=== PATIENT | male | born 1965 | race Caucasian/White ===

== ENCOUNTER 2018-12-08 12:32 | Outpatient (RCR) | payer OTHER ==
[~2018-12-08 12:32] MED LIST: NO HOME MEDICATIONS; NORCO 325 MG-7.1 TAB PO
== END 2019-03-08 | disposition home or self-care (01) ==
LOC: WSOH
DX: S40.811A Abrasion of right upper arm, initial encounter (principal); W45.0XXA Nail entering through skin, initial encounter; Y92.89 Other specified places as the place of occurrence of the external cause; Y99.0 Civilian activity done for income or pay; Z23 Encounter for immunization; F17.210 Nicotine dependence, cigarettes, uncomplicated

== ENCOUNTER 2022-11-20 05:17 | Inpatient (IN) | payer OTHER ==
[~2022-11-20] VITALS: Ht 177.8 cm; Wt 131.2 kg
[2022-11-25] VITALS (8 sets, daily range): BP systolic 122–138; BP diastolic 78–89; PULSE 81–114; TEMP 97.8–98.6
[2022-11-25 10:41] LABS: CALCIUM 9.3 mg/dL (8.4-10.2); CREATININE, serum 0.83 mg/dL (0.72-1.25); MAGNESIUM 2.1 mg/dL (1.6-2.6); POTASSIUM 4.5 mmol/L (3.5-4.5)
[2022-11-25] MEDS ORDERED: CARDIZEM CD360 MG PO (11:13)
[2022-11-25] MEDS ORDERED: XARELTO20 MG PO (11:14)
[2022-11-25] MEDS ORDERED: LIPITOR 40MG TA40 MG PO (11:15)
[2022-11-25] MEDS ORDERED: ASPIRIN 81M81 MG/TA2 PO (11:15)
[2022-11-25] MEDS ORDERED: TYLENOL 500MG500 MG PO (11:15)
[2022-11-25] MEDS ORDERED: VIAGRA 25MG TAB25 MG PO (11:16)
--- NOTE | 2022-11-25 11:31 | NUR ---
PATIENT ADMITTED TO ROOM 357 FOR BIANCA INITATION AT APPROX 0920. KATERYNA LUZ WITH CARDIOLOGY NOTIFIED AT 0930. INTAKE, ASSESSMENT, AND MED REC COMPLETED. ORDERS FAXED TO PHARMACY. PATIENT ORIENTED TO ROOM AND USE OF CALL LIGHT. DENIES NEEDS.
--- NOTE | 2022-11-25 12:09 | NUR ---
INITIAL QTC 513. KATERYNA LUZ UPDATED, CLARIFICATION REQUESTED WHETHER OR NOT TO GIVE FIRST TIKOSYN DOSE. AWAITING RETURN CALL.
--- NOTE | 2022-11-25 13:09 | NUR ---
PER KATERYNA LUZ OKAY FOR PATIENT TO RECEIVE TIKOSYN WITH QTC OF 513. MEDICATION GIVEN PER ORDER. EKG ORDER PLACED FOR TWO HOURS POST ADMINISTRATION
--- NOTE | 2022-11-25 21:05 | NUR ---
Pt sitting up in recliner upon this nurse's entry to room. A&Ox4. PM scheduled medications admin PO w/o difficulty. Shift assessment performed. Respirations even and unlabored on room air. Heart rhythm irregular w/ regular rate. Abd rounded and soft. Crusting dryness to bilateral heels. Scaling/flakiness noted to BLE and some edema w/o pitting. Pt denies any chest pain, palpitations, SOA, dyspnea, lightheadedness, dizziness, or nausea/vomitting. No needs or concerns voiced. Call light in reach.
[2022-11-26] VITALS (18 sets, daily range): BP systolic 99–141; BP diastolic 64–97; PULSE 53–107; TEMP 97.9–98.5
--- NOTE | 2022-11-26 05:39 | NUR ---
Pt has been monitored throughout night by this nurse. No adverse events overnight. Pt has been resting soundly w/ eyes closed. Respirations are even and unlabored on room air. Telemetry in place monitoring cardiac activity. Irregular rhythm (AFlutter w/ RVR) w/ rate of 90-100bpm. No signs of distress noted. Call light in reach.
--- NOTE | 2022-11-26 10:41 | NUR ---
SHIFT ASSESSMENT COMPLETED AND MORNING MEDICATIONS GIVEN PER ORDER. KATERYNA LUZ UPDATED REGARDING ELEVATED QTC THIS MORNING, PER ANNITA CURRAN TO GIVE TIKOSYN THIS MORNING. PATIENT IS ALERT AND ORIENTED. C/O PAIN 10/06 BUT STATES HE DOES NOT WANT MEDICATION AT THIS TIME. PLAN IS FOR PATIENT TO HAVE SHENG/CARDIOVERSION THIS AFTERNOON. DENIES NEEDS. CALL LIGHT WITHIN REACH.
--- NOTE | 2022-11-26 10:48 | NUR ---
SW met with pt for intake. Pt reports living in alone however brother is going to prepare a camper for him to live in [facility] in his yard. Pt reports PCP as Valeria and uses [facility] as pharmacy. Pt reports he was out of meds due to the prescibing dr not doing follow up and reports he called in for prescription and didn't get a call back. Pt reports the med is supposed to be sent by mail by specialty pharmacy. Pt reports [facility] is [facility] and his number is [phone]. Pt reports having DPOA. Pt denies any needs at this time. D/C plan home with brother
--- NOTE | 2022-11-26 13:54 | NUR ---
PATIENT GOING DOWN TO ASSISTANT SPEECH LANGUAGE PATHOLOGIST.
--- NOTE | 2022-11-26 15:24 | NUR ---
PATIENT RETURNED FROM [facility]OCK [facility]PA[facility]ER AT APPROX 1505. PATIENT IS ALERT AND ORIENTED. DENIES PAIN. TOLERATING PO LIQUIDS WELL. PATIENT IN AND OUT OF JUNCTIONAL RHYTHM, HR 50S-70S. DR. DEAL AWARE. DENIES NEEDS. CALL LIGHT WITHIN REACH.
--- NOTE | 2022-11-26 16:28 | NUR ---
NOTIFIED BY TELE THAT PATIENT NOTED TO BE TACHYCARDIC IN THE 140S, IMMEDIATELY FOLLOWED BY BEING DIEGO IN THE 30S. UPON ASSESSMENT, PATIENT NOTED TO BE IN SINUS RHYTHM WITH 1-2 MINUTE PERIODS OF SINUS TACHYCARDIA, IMMEDIATELY FOLLOWED BY 10-30 SECOND PERIODS OF SINUS DIEGO. PATIENT ASYMPTOMATIC, VS STABLE. KATERYNA LUZ UPDATED WHO STATES TO CONTINUE TO MONITOR PATIENT.
--- NOTE | 2022-11-26 17:30 | NUR ---
THIS RN SPOKE WITH DR. DEAL TO UPDATE HIM REGARDING PATIENT'S TACHY/DIEGO EPISODES. PER DR. DEAL, REDUCE TIKOSYN TO 250MCG BID AND CONTINUE TO MONITOR PATIENT. ORDERS ENTERED. PATIENT CONTINUES TO BE ASYMPTOMATIC.
--- NOTE | 2022-11-26 21:15 | NUR ---
Pt sitting up in bed watching tv upon this nurse's entry to room. A&Ox4. PM scheduled medications admin PO w/o difficulty. Shift assessment performed. Respirations are even and unlabored on room air. Heart sounds RRR. Telemetry in place monitoring pt cardiac activity. No redness or burning @ cardioversion pad sites on chest & back. Pt denies any SOA, dyspnea, chest pain, palpitations, lightheadedness, or dizziness. No needs or concerns voiced. Call light in reach.
[2022-11-27] VITALS (12 sets, daily range): BP systolic 113–140; BP diastolic 69–83; PULSE 64–84; TEMP 97.8–99
--- NOTE | 2022-11-27 00:36 | NUR ---
Pt lying in bed supine w/ eyes closed resting in dark room. Respirations are even and unlabored on room air. No signs of distress observed. Tele in place monitoring cardiac activity. SR 78bpm. Call light in reach.
--- NOTE | 2022-11-27 05:18 | NUR ---
Pt lying supine w/ HOB elevated approx 40 degrees resting w/ eyes closed. Respirations are even and unlabored on room air. No signs of distress. Tele in place SR 78bpm. HR has been fluctuating from 60-95bpm gradually over a 2-3 minute period and repeats. Call light in reach. Will continue to monitor.
--- NOTE | 2022-11-27 06:18 | NUR ---
Pt lying in bed w/ eyes closed and HOB elevated @ approx 30 degrees. Pt has been monitored throughout night by this nurse. No adverse events overnight. Pt did have one episode @ approx 0210 per radiologic technology program director of HR in 140's then returning to 70's. Tele in place and is NSR 82bpm. Respirations are even and unlabored on room air. No signs of distress noted. Call light in reach.
--- NOTE | 2022-11-27 22:30 | NUR ---
Patient assessed around 2054. Alert and oriented, and able to make needs known. Voiced concerns about having an appointment tomorrow at 1100. Per Torres's note, cardiology is aware of appointment and are planning on discharging patient so he can go to his appointment. Dr. Argueta confirmed this with this nurse while rounding. Patient updated. Given Acetaminophen for pain to right shoulder and RUE as requested. Voices no further questions, needs, or concerns at this time. In recliner with call light within reach.
[2022-11-28 00:40] VITALS: BP_SYST 118
[2022-11-28 03:15] VITALS: BP 110/71; PULSE 80; TEMP 98.2
[2022-11-28 03:31] VITALS: BP_SYST 110
--- NOTE | 2022-11-28 06:13 | NUR ---
Patient remains in normal sinus rhythm on telemetry. Voices no questions, needs, or concerns at this time. In bed with call light within reach.
[2022-11-28 07:03] VITALS: BP 133/86; PULSE 79; TEMP 98.4
[2022-11-28] MEDS ORDERED: TIKOSYN0.25 MG PO (09:04)
--- NOTE | 2022-11-28 09:31 | NUR ---
PT AWAKE IN CHAIR UPON ENTERING. ASSESSMENT DONE, SEE INTERVENTIONS. PT REPORTS NO PAIN OR OTHER COMPLAINTS AT THIS TIME. PT DRESSED IN PERSONAL CLOTHES AND AWAITING DISCHARGE. LEFT HAND INT AND TELEMETRY DISCONTINUED.
--- NOTE | 2022-11-28 09:57 | NUR ---
THIS RN AGREES WITH DILIP HOLLEY'S ASSESSMENT. THIS RN OVERSAW MEDICATION ADMINISTRATION. PT PREPARED FOR DISCHARGE.
--- NOTE | 2022-11-28 10:10 | NUR ---
PT AND GIRLFRIEND AT BEDSIDE FOR DISCHARGE EDUCATION OF MEDICATIONS AND FOLLOW UP APPOINTMENTS, BOTH VERBALIZED UNDERSTANDING. PT HAS NO QUESTIONS AT THIS TIME. PT ESCORTED BY [facility] STAFF TO PERSONAL VEHICLE VIA WHEELCHAIR
== END 2022-11-28 10:00 | disposition home or self-care (01) | DRG 310 ==
LOC: MEDICAL 11-25 05:16
PROVIDERS: ADMIT Internal Medicine Interventional Cardiology
PROC: 5A2204Z Restoration of Cardiac Rhythm, Single (ICD-10-PCS; principal; 2022-11-26)
DX: I48.92 Unspecified atrial flutter (principal); Z79.01 Long term (current) use of anticoagulants; F17.210 Nicotine dependence, cigarettes, uncomplicated; Z79.82 Long term (current) use of aspirin